=== PATIENT | female | born 1970 | race Caucasian/White ===

== ENCOUNTER → 2020-10-02 | Outpatient (CLI) | payer OTHER ==
[~2020-10-02] MED LIST: CLEOCIN HCL300 MG PO; COZAAR50 MG PO; CYANOCOBAL1000 MCG/1 IM; FOLIC ACID 1 MG1 MG PO; MACROBID 100 M100 MG PO; NORVASC10 MG PO; OMNICEF 300 MG300 MG PO; PHENERGAN 25 MG25 M1 PO; PROTONIX40 MG PO; TAB-A-VITE1 EACH PO; VITAMIN D 11000 UNIT PO; ZOFRAN4 MG PO
[2020-10-02 10:57] LABS: HEMOGLOBIN 15.5 gm/dl (12.3-15.3); RED BLOOD COUNT 5.01 M/UL (4.00-5.10); WHITE BLOOD COUNT 8.6 K/UL (4.5-11.0)
[2020-10-02 11:22] LABS: BUN/CREATININE RATIO 19 (0-10)
[2020-10-03 07:19] LABS: VITAMIN D, 25-HYDROXY 19.3 ng/mL (30.0-100.0)
[2020-10-03 12:11] LABS: C-PEPTIDE, SERUM 4.3 ng/mL (1.1-4.4)
== END ==
LOC: LAB 10:24
PROVIDERS: Family Medicine
DX: E11.9 Type 2 diabetes mellitus without complications (principal); E78.5 Hyperlipidemia, unspecified; I10 Essential (primary) hypertension; E55.9 Vitamin D deficiency, unspecified
CPT/HCPCS: 36415; 80053; 80061; 82043; 84439; 84443; 84681; 85027

== ENCOUNTER 2021-03-02 10:10 | Emergency (ER) | payer OTHER ==
[2021-03-02] MEDS ORDERED: CLEOCIN HCL300 MG PO (10:55)
[2021-03-02] MEDS ORDERED: NAPROSYN500 MG PO (10:55)
== END 2021-03-02 11:02 | disposition home or self-care (01) ==
LOC: ER1 10:10
DX: K08.89 Other specified disorders of teeth and supporting structures (principal); F17.200 Nicotine dependence, unspecified, uncomplicated; E11.9 Type 2 diabetes mellitus without complications; I10 Essential (primary) hypertension; Z88.0 Allergy status to penicillin; Z90.49 Acquired absence of other specified parts of digestive tract; Z90.89 Acquired absence of other organs
CPT/HCPCS: 99282

== ENCOUNTER → 2021-04-17 | Outpatient (CLI) | payer OTHER ==
[~2021-04-17] MED LIST changes: +NAPROSYN500 MG PO
[2021-04-17 11:08] LABS: HEMOGLOBIN 15.8 gm/dl (12.3-15.3); RED BLOOD COUNT 5.16 M/UL (4.00-5.10); WHITE BLOOD COUNT 8.6 K/UL (4.5-11.0)
[2021-04-17 11:28] LABS: BUN/CREATININE RATIO 23 (0-10)
== END ==
LOC: MAMO 10:06
PROVIDERS: Family Medicine
DX: Z12.31 Encounter for screening mammogram for malignant neoplasm of breast (principal); E78.5 Hyperlipidemia, unspecified; I10 Essential (primary) hypertension; E55.9 Vitamin D deficiency, unspecified
CPT/HCPCS: 36415; 77063; 77067; 80053; 80061; 84439; 84443; 85027

== ENCOUNTER 2021-10-19 17:18 | Emergency (ER) | payer OTHER ==
[2021-10-19 18:37] LABS: HEMOGLOBIN 15.1 gm/dl (12.3-15.3); RED BLOOD COUNT 4.85 M/UL (4.00-5.10); WHITE BLOOD COUNT 10.1 K/UL (4.5-11.0)
[2021-10-19 19:05] LABS: BUN/CREATININE RATIO 19 (0-10)
== END 2021-10-19 22:05 | disposition home or self-care (01) ==
LOC: ER1 17:18
PROVIDERS: Nurse Practitioner
DX: G43.909 Migraine, unspecified, not intractable, without status migrainosus (principal); Z20.822 Contact with and (suspected) exposure to COVID-19; E11.9 Type 2 diabetes mellitus without complications; I10 Essential (primary) hypertension; F17.210 Nicotine dependence, cigarettes, uncomplicated; Z88.0 Allergy status to penicillin
CPT/HCPCS: 0240U; 70450; 70496; 70498; 71045; 80053; 82550; 82553; 84484; 85025; 93005; 99284; Q9967

== ENCOUNTER 2021-12-10 03:01 | Emergency (ER) | payer OTHER | END 2021-12-10 04:30 | disposition left against medical advice (07) | LOC: ER1 03:01 | DX: Z53.21 Procedure and treatment not carried out due to patient leaving prior to being seen by health care provider (principal) ==

== ENCOUNTER → 2022-02-25 | Outpatient (CLI) | payer OTHER | LOC: EXRD 10:09 | DX: M85.852 Other specified disorders of bone density and structure, left thigh (principal) | CPT/HCPCS: 77080 ==